=== PATIENT | female | born 1975 | race Caucasian/White ===

== ENCOUNTER 2017-08-24 08:57 | Emergency (ER) | payer MEDICAID ==
[~2017-08-24] VITALS: Ht 175.3 cm; Wt 87.0 kg
[~2017-08-24 08:57] MED LIST: ALBU8.5H5 INH; LEVO750T26 PO; METH4TAB2 PO
[2017-08-24 08:59] VITALS: BP 150/106
== END 2017-08-24 10:40 | disposition home or self-care (01) ==
LOC: ED 10:11
DX: M25.571 Pain in right ankle and joints of right foot (principal); G89.11 Acute pain due to trauma
CPT/HCPCS: 99284

== ENCOUNTER → 2017-09-09 | Outpatient (CLI) | payer MEDICAID ==
[~2017-09-09] MED LIST changes: +IBUP-1223 PO
== END ==
LOC: STAR 14:06
PROVIDERS: ATTEND Orthopaedic Surgery
DX: Z02.9 Encounter for administrative examinations, unspecified (principal)

== ENCOUNTER 2017-09-14 08:40 | Day surgery (SDC) | payer MEDICAID ==
[~2017-09-14] VITALS: Ht 175.3 cm; Wt 92.2 kg
[2017-09-14] MEDS ORDERED: LACTATED RINGERS 1,000 ML IV SCH (09:39)
[2017-09-14 09:45] VITALS: BP 123/75
[2017-09-14 10:09] LABS: HCG UR SG 1.024 (1.003-1.030)
[2017-09-14 10:24] LABS: AMPHETAMINE SCREEN, URINE Negative (Negative); BARBITURATE SCREEN, URINE Negative (Negative); BENZODIAZEPINE SCREEN, URINE Negative (Negative); CANNABINOID SCREEN, URINE Negative (Negative); COCAINE SCREEN, URINE Negative (Negative); METHADONE SCREEN, URINE Negative (Negative); OPIATE SCREEN, URINE Negative (Negative)
[2017-09-14] MEDS ORDERED: MIDAZOLAM 1 MG/ML, 2ML ONE (12:58)
[2017-09-14] MEDS ORDERED: FENTANYL PF 100 MCG/2ML ONE (12:58)
[2017-09-14] MEDS ORDERED: CEFAZOLIN 1,000 MG ONE (13:14)
[2017-09-14] MEDS ORDERED: BUPIVACAINE/PF 0.5% ONE (13:53)
[2017-09-14] MEDS ORDERED: EPINEPHRINE 1 MG/ML, 1ML ONE (13:54)
[2017-09-14] MEDS ORDERED: MEPERIDINE/PF 25MG/0.5ML IVPush PRN (14:00)
[2017-09-14] MEDS ORDERED: PROMETHAZINE 25 MG/ML, 1ML IV PRN (14:00)
[2017-09-14] MEDS ORDERED: MIDAZOLAM 1 MG/ML, 2ML IV PRN (14:00)
[2017-09-14] MEDS ORDERED: DIAZEPAM 5 MG/ML, 2ML IVPush PRN (14:00)
[2017-09-14] MEDS ORDERED: FENTANYL PF 100 MCG/2ML IV PRN (14:00)
[2017-09-14] MEDS ORDERED: PROMETHAZINE 12.5 MG SUPP PR PRN (14:00)
[2017-09-14] MEDS ORDERED: LORazepam 2 MG/ML, 1ML IVPush PRN (14:00)
[2017-09-14] MEDS ORDERED: ONDANSETRON 2MG/ML, 2ML IVPush PRN (14:00)
[2017-09-14] MEDS ORDERED: ACETAMINOPHEN 325 MG TABLET PO PRN (14:00)
[2017-09-14] MEDS ORDERED: PROPOFOL 10 MG/ML, 20ML ONE (14:24)
[2017-09-14] MEDS ORDERED: DEXAMETHASONE 4 MG/ML, 1ML ONE (14:24)
[2017-09-14] MEDS ORDERED: ONDANSETRON 2MG/ML, 2ML ONE (14:24)
[2017-09-14] MEDS ORDERED: KETOROLAC 30 MG/1 ML ONE (14:24)
[2017-09-14] MEDS ORDERED: ACETAMINOPHEN 650 MG/20.3 ML UDC ONE (14:35)
== END 2017-09-14 16:10 ==
LOC: OUT 08:40
PROVIDERS: ATTEND Orthopaedic Surgery
DX: Z47.2 Encounter for removal of internal fixation device (principal)
CPT/HCPCS: 20680; 80307; 81025; J0171; J0690; J1100; J1885; J2250; J2405; J2704; J3010; J3490; J7120

== ENCOUNTER 2017-10-20 09:00 | Emergency (ER) | payer MEDICAID ==
[~2017-10-20] VITALS: Ht 175.3 cm; Wt 96.3 kg
[2017-10-20] MEDS ORDERED: MUPIROCIN OINT 2%, 22GM TP SCH (09:51)
[2017-10-20] MEDS ORDERED: PENICILLIN VK 500MG TABLET PO ONE (09:51)
[2017-10-20] MEDS ORDERED: PENICILLIN VK 500MG TABLET ONE (10:11)
[2017-10-20 10:55] VITALS: BP 140/89
== END 2017-10-20 10:57 | disposition home or self-care (01) ==
LOC: ED 10:52
DX: L01.01 Non-bullous impetigo (principal)
CPT/HCPCS: 99283

== ENCOUNTER 2017-10-26 08:48 | Emergency (ER) | payer MEDICAID ==
[~2017-10-26] VITALS: Ht 175.3 cm; Wt 94.8 kg
[2017-10-26 08:50] VITALS: BP 148/103
[2017-10-26] MEDS ORDERED: FAMOTIDINE 20 MG TABLET ONE (09:54)
[2017-10-26] MEDS ORDERED: DEXAMETHASONE 4 MG TABLET ONE (09:54)
[2017-10-26] MEDS ORDERED: FAMOTIDINE 20 MG TABLET PO ONE (10:00)
[2017-10-26] MEDS ORDERED: DEXAMETHASONE 4 MG TABLET PO ONE (10:00)
== END 2017-10-26 10:19 | disposition home or self-care (01) ==
LOC: ED 10:13
DX: T36.0X5A Adverse effect of penicillins, initial encounter (principal); L01.01 Non-bullous impetigo; F17.210 Nicotine dependence, cigarettes, uncomplicated; Y92.9 Unspecified place or not applicable
CPT/HCPCS: 99284; Q0177

== ENCOUNTER 2017-11-28 13:01 | Emergency (ER) | payer MEDICAID ==
[~2017-11-28] VITALS: Ht 175.3 cm; Wt 94.0 kg
[2017-11-28 13:02] VITALS: BP 145/87
== END 2017-11-28 15:22 | disposition home or self-care (01) ==
LOC: ED 15:04
DX: T78.40XA Allergy, unspecified, initial encounter (principal); L01.01 Non-bullous impetigo; J45.909 Unspecified asthma, uncomplicated; F17.200 Nicotine dependence, unspecified, uncomplicated; X58.XXXA Exposure to other specified factors, initial encounter
CPT/HCPCS: 99283; J7512

== ENCOUNTER 2020-10-24 15:07 | Emergency (ER) | payer MEDICAID ==
[~2020-10-24] VITALS: Ht 174 cm; Wt 80.0 kg
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
--- NOTE | 2020-10-24 15:33 | NUR ---
ERPA AT BEDSIDE FOR EVALUATION.
[2020-10-24] MEDS ORDERED: ONDANSETRON 2MG/ML, 2ML ONE (15:40)
[2020-10-24] MEDS ORDERED: DEXAMETHASONE 4 MG TABLET ONE (15:40)
--- NOTE | 2020-10-24 15:45 | NUR ---
PATIENT MEDICATED PER eMAR, VSS, CALL LIGHT WITHIN REACH.
[2020-10-24] MEDS ORDERED: ONDANSETRON 2MG/ML, 2ML IVPush ONE (16:00)
[2020-10-24] MEDS ORDERED: SODIUM CHLORIDE 0.9% 1,000ML IVBOLUS ONE (16:00)
[2020-10-24] MEDS ORDERED: DEXAMETHASONE 4 MG TABLET PO ONE (16:00)
[2020-10-24 16:03] LABS: ALBUMIN 2.8 g/dL (3.4-5.0); ANION GAP 6 mmol/L (5-15); CALCIUM 8.8 mg/dL (8.5-10.1); CHLORIDE 106 mmol/L (98-107); MEAN CORPUSCULAR HEMOGLOBIN 32.4 pg (27.0-34.8); MEAN CORPUSCULAR HGB CONC 33.5 g/dL (32.4-35.8); MEAN PLATELET VOLUME 8.4 fL (7.4-10.4); PLATELET COUNT 276 x10^3/uL (130-400); RED BLOOD COUNT 3.89 x10^6/uL (3.82-5.3); RED CELL DISTRIBUTION WIDTH 12.8 % (9.6-15.2)
[2020-10-24 16:09] LABS: ALANINE AMINOTRANSFERASE 39 U/L (12-78); ALKALINE PHOSPHATASE 97 U/L (45-117); BILIRUBIN,TOTAL 0.4 mg/dL (0.2-1.0); CREATININE 0.68 mg/dL (0.55-1.02); TROPONIN I < 0.015 ng/mL (0.000-0.045)
--- NOTE | 2020-10-24 17:08 | NUR ---
PATIENT RESTING IN GURNEY WITH EYES CLOSED, RESP EVEN AND UNLABORED, VSS, CALL LIGHT WITHIN REACH. PATIENT UP FOR RECHECK.
[2020-10-24 17:35] LABS: MD YES
[2020-10-24 17:37] LABS: BAND#(MANUAL) 0.79 x10^3/uL; BANDS%(MANUAL) 5 % (0-7); LYMPH#(MANUAL) 0.79 x10^3/uL (1-3.4); LYMPHS% (MANUAL) 5 % (22-44); MONOS#(MANUAL) 1.11 x10^3/uL (0.3-2.7); MONOS% (MANUAL) 7 % (2-9); SEG#(MANUAL) 13.11 x10^3/uL (1.8-6.8); SEGS% (MANUAL) 83 % (42-75)
[2020-10-24 17:38] LABS: <PLATELET ESTIMATE> ADEQUATE; <PLT MORPHOLOGY> NORMAL PLT MORPH; <RBC MORPHOLOGY> NORMAL
[2020-10-24 17:48] VITALS: BP 130/84
--- NOTE | 2020-10-24 18:16 | NUR ---
Patient given discharge instructions and presctiptions and they have confirmed that they understand the instructions. Patient stable and ambulatory with steady gait from ED to private vehicle.
== END 2020-10-24 18:17 | disposition home or self-care (01) ==
LOC: ED 16:47
DX: J02.0 Streptococcal pharyngitis (principal); R11.2 Nausea with vomiting, unspecified; R94.31 Abnormal electrocardiogram [ECG] [EKG]
CPT/HCPCS: 36415; 71045; 80053; 84484; 84703; 85025; 87880; 93005; 96361; 96374; 99285; J2405; J7030

== ENCOUNTER 2020-12-25 11:48 | Emergency (ER) | payer MEDICAID, OTHER ==
[~2020-12-25] VITALS: Ht 175.3 cm; Wt 75.0 kg
[2020-12-25 11:50] VITALS: BP 145/96
--- NOTE | 2020-12-25 12:49 | NUR ---
WAITING RIDE W/LAW ENFORCEMENT
== END 2020-12-25 13:13 | disposition home or self-care (01) ==
LOC: ED 12:30
DX: J34.0 Abscess, furuncle and carbuncle of nose (principal); L03.211 Cellulitis of face; L03.114 Cellulitis of left upper limb; L03.113 Cellulitis of right upper limb
CPT/HCPCS: 82962; 99283